=== PATIENT | male | born 1955 | race Caucasian/White ===

== ENCOUNTER 2019-03-07 20:53 | Emergency (ER) | payer BC ==
--- NOTE | 2019-03-07 21:57 | RADIOLOGY REPORT (SQ) ---
EXAM DESCRIPTION: XR CHEST 2 VIEWS COMPLETED DATE/TME: 03/07/2019 00:00 CLINICAL HISTORY: 63 years, Male, cp COMPARISON: None. NUMBER OF VIEWS: Two TECHNIQUE: Frontal and lateral regression of the chest were obtained LIMITATIONS: None. FINDINGS: Cardiac and mediastinal contours are normal. Lungs are clear. No pleural effusion or pneumothorax. IMPRESSION: No acute disease. copyright 2010 [employer]- All Rights Reserved
[2019-03-07 22:23] LABS: ABSOLUTE BASOPHILS # (AUTO) 0.1 10^3/uL (0.0-0.2); ABSOLUTE EOSINOPHILS # (AUTO) 0.6 10^3/uL (0.0-0.6); ABSOLUTE LYMPHOCYTES (AUTO) 3.9 10^3/uL (0.5-4.7); ABSOLUTE MONOCYTES (AUTO) 1.2 10^3/uL (0.1-1.4); ABSOLUTE NEUT (AUTO) 7.9 10^3/uL (1.7-8.2); APPEARANCE,URINE CLEAR; BASOPHILS % (AUTO) 0.7 % (0-2); BILIRUBIN,URINE NEGATIVE (NEGATIVE); COLOR,URINE YELLOW; GLUCOSE, URINE NEGATIVE (NEGATIVE); HEMATOCRIT 47.4 % (37.9-51.0); KETONES,URINE NEGATIVE (NEGATIVE); LEUKOCYTE ESTERASE,URINE NEGATIVE (NEGATIVE); LYMPHOCYTES % (AUTO) 28.6 % (13-45); MEAN CORPUSCULAR HGB CONC 33.8 g/dL (32.0-36.0); MEAN CORPUSCULAR VOLUME 83 fl (80-97); MONOCYTES % (AUTO) 8.8 % (3-13); NITRITE,URINE NEGATIVE (NEGATIVE); PLATELET COUNT 303 10^3/uL (150-450); PROTEIN,URINE NEGATIVE (NEGATIVE); RED BLOOD COUNT 5.71 10^6/uL (4.35-5.55); RED CELL DISTRIBUTION WIDTH 14.2 % (11.5-14.0); SEGMENTED NEUTROPHILS % (AUTO) 57.9 % (42-78); TOTAL CELLS COUNTED % (AUTO) 100 %; URINE SPECIFIC GRAVITY 1.011; UROBILINOGEN,URINE NEGATIVE mg/dL (<2.0); WHITE BLOOD COUNT 13.7 10^3/uL (4.0-10.5)
[2019-03-07 22:31] LABS: ALBUMIN 4.1 g/dL (3.5-5.0); ALKALINE PHOSPHATASE 148 U/L (38-126); ANION GAP 8 (5-19); ASPARTATE AMINO TRANSFERASE 22 U/L (17-59); BILIRUBIN,DIRECT 0.1 mg/dL (0.0-0.4); BILIRUBIN,TOTAL 0.6 mg/dL (0.2-1.3); BLOOD UREA NITROGEN 8 mg/dL (7-20); CALCIUM 9.4 mg/dL (8.4-10.2); CARBON DIOXIDE 28 mmol/L (22-30); CHLORIDE 105 mmol/L (98-107); CREATINE KINASE 76 U/L (55-170); GLUCOSE 87 mg/dL (75-110); POTASSIUM 4.2 mmol/L (3.6-5.0); TOTAL PROTEIN 7.2 g/dL (6.3-8.2)
[2019-03-07 22:43] LABS: CREATINE KINASE MB 0.7 ng/mL (<4.55)
[2019-03-07 22:47] LABS: TROPONIN I 0.038 ng/mL
--- NOTE | 2019-03-08 00:33 | EKG REPORT ---
SEVERITY:- NORMAL ECG - SINUS RHYTHM : Confirmed by: Jessica Lundberg MD 08-Mar-2019 00:32:49
--- NOTE | 2019-03-08 02:11 | ER Document Report ---
ED General - General Chief Complaint: Chest Pain > 30 Stated Complaint: CHEST PAIN Time Seen by Provider: 03/07/19 23:42 Primary Care Provider: LESVIA EASON FNP [Primary Care Provider] - Follow up as needed TRAVEL OUTSIDE OF THE [place] IN LAST 30 DAYS: No - HPI Notes: Patient is a 63-year-old male who presents emergency department for evaluation of chest pain. He has had chest pain for some time. He has been seeing Dr. Simmons, electronics test engineer out of [facility], and had a positive stress test recently. He is scheduled for heart catheterization at [facility] on the . The patient states that he has been having chest pain he describes as a squeezing, intermittently, that lasts about 5 to 10 minutes. He states that taking aspirin seems to make it go away. He has some associated shortness of breath, occasionally diaphoresis, occasionally nausea. He states the first time he had this he was exerting himself. He states tonight he was at rest when this pain came on. He took 6 baby aspirin at home and had no relief, so he presents to the ED for further evaluation. At the time of my initial evaluation, the patient had absolutely no chest pain. - Related Data Allergies/Adverse Reactions: No Known Allergies Allergy (Verified 05/06/14 20:23) Home Medications: ASA. flomax. Unknown medicine for hyperlipidemia Past Medical History - General Information source: Patient - Social History Smoking Status: Former Smoker Chew tobacco use (# tins/day): Yes Drug Abuse: None Family History: CAD - Patient's sister of an NC in her 40s Patient has suicidal ideation: No Patient has homicidal ideation: No - Past Medical History Cardiac Medical History: Reports: Hx Hypercholesterolemia Renal/ Medical History: Reports: Hx Benign Prostatic Hyperplasia, Hx Kidney Stones Psychiatric Medical History: Reports: Hx Depression - Immunizations Hx Diphtheria, Pertussis, Tetanus Vaccination: Yes Physical Exam - Vital signs Vitals: Temp Pulse Resp BP Pulse Ox 98.2 F 56 L 22 H 163/96 H 97 03/07/19 21:00 03/07/19 21:00 03/07/19 21:00 03/07/19 21:00 03/07/19 21:00 - Notes Notes: Vital signs reviewed, please refer to chart. Head is normocephalic, atraumatic. Pupils equal round, reactive to light. Neck is supple without meningismus. Heart is regular rate and rhythm. Lungs are clear to auscultation bilaterally. Abdomen is soft, nontender, normoactive bowel sounds throughout. Extremities without cyanosis, clubbing. Posterior calves are nontender. Peripheral pulses are equal. Skin is warm and dry. Patient is awake, alert, neurological exam is nonfocal. Course - Re-evaluation Re-evalutation: 03/08/19 02:09 Patient is a 63-year-old gentleman who presents emergency department with chest pain. He has had a recent positive stress test, is awaiting heart catheterization. Per family, Dr. Simmons said he would be happier if he had his catheterization sooner than next week. This patient's pain is atypical, but again he does have a positive stress test. His laboratory investigations revealed an indeterminately elevated troponin, which actually came down somewhat on the second set. He remained chest pain-free throughout the course of his stay. His EKG is unremarkable. He did have some hypertension here, but has otherwise been stable. Awaiting phone call from cardiology in [facility]. 03/08/19 02:[address] Perea, electronics test engineer to [facility]. He gladly accepted the patient. Patient is resting comfortably, remained stable. An inch of Nitropaste was placed. He is already on aspirin therapy. He has a resting heart rate in the mid 50s, I do not think a beta-jennyfer is appropriate in the setting. He has had 2 sets of cardiac enzymes are negative, the second coming down, do not believe anticoagulation is necessary at this time. We will order his regular home medications, one more set of enzymes. Unfortunately [facility] is currently at capacity. He has been accepted but does not yet have a bed assignment. I explained to the patient as well as the family that he may be here for 24 hours or more. They voiced understanding. - Vital Signs Vital signs: Temp Pulse Resp BP Pulse Ox 98.2 F 56 L 15 142/105 H 96 03/07/19 21:14 03/07/19 21:14 03/08/19 02:01 03/08/19 02:01 03/08/19 02:01 - Laboratory Result Diagrams: 03/07/19 22:00 03/07/19 22:00 Laboratory results interpreted by me: 03/07/19 03/07/19 22:00 22:00 WBC 13.7 H RBC 5.71 H RDW 14.2 H Alkaline Phosphatase 148 H - Diagnostic Test Radiology reviewed: Image reviewed, Reports reviewed Radiology results interpreted by me: 03/08/19 02:10 Chest X-Ray 03/07/19 00:00 IMPRESSION: No acute disease. copyright 2010 [employer]- All Rights Reserved - EKG Interpretation by Me Additional EKG results interpreted by me: 03/08/19 02:11 Sinus bradycardia with a rate of 57 bpm. Normal axis and intervals, no acute ST changes concerning for ischemia or infarction Discharge - Discharge Clinical Impression: Abnormal stress test Chest pain Qualifiers: Chest pain type: unspecified Qualified Code(s): R07.9 - Chest pain, unspecified Condition: Stable Disposition: [facility] Admitting Provider: Dr. Perea Referrals: LESVIA EASON FNP [Primary Care Provider] - Follow up as needed
[2019-03-08] MEDS ORDERED: NITROGLYCERIN 2% OINTMENT 1 GM PACKET TP ONE (02:58)
[2019-03-08] MEDS ORDERED: ATORVASTATIN CALCIUM 20 MG TABLET PO SCH (10:00)
[2019-03-08] MEDS ORDERED: CITALOPRAM HYDROBROMIDE 20 MG TABLET PO SCH (10:00)
[2019-03-08] MEDS ORDERED: TAMSULOSIN HCL 0.4 MG CAP.SR.24H PO SCH (18:00)
--- NOTE | 2019-03-09 07:40 | ER Document Report ---
Doctor's Note Notes: 03/09/19 07:40 Transportation is here for the patient. He is alert and oriented. He is in no distress. His vital signs are stable. His troponins have remained negative. He is stable for transport.
[2019-03-09 07:43] VITALS: BP 128/84
== END 2019-03-09 07:48 | disposition short-term general hospital (02) ==
LOC: ER 20:53
DX: R07.9 Chest pain, unspecified (principal); R94.39 Abnormal result of other cardiovascular function study; R06.02 Shortness of breath; R11.0 Nausea; R61 Generalized hyperhidrosis; Z87.891 Personal history of nicotine dependence
CPT/HCPCS: 36415; 71046; 80053; 81001; 82550; 82553; 84484; 85025; 93005; 93010; 99285